=== PATIENT | male | born 1970 | race Caucasian/White ===

== ENCOUNTER 2021-07-10 18:35 | Emergency (ER) | payer BC, SELFPAY ==
--- NOTE | ~2021-07-10 | XR_ITS ---
EXAMINATION: XR scapula LT DATE: 07/10/2021 18:54 INDICATION: Nontraumatic left scapular pain TECHNIQUE: AP and lateral views of the left scapula were obtained. COMPARISON: Chest radiograph dated 02/22/2013 FINDINGS: Mild S-shaped curvature of the thoracic spine with upper cervical levocurvature and mid thoracic dext rocurvature. Normal alignment at the left shoulder. No fracture. Glenohumeral and acromioclavicular j oints are normal. Soft tissues are unremarkable. Visualized portions of the left lung are clear. IMPRESSION: 1. No acute osseous abnormality. Reviewed, dictated and finalized at location A. ORT LOCATION MANAGER
--- NOTE | 2021-07-10 18:36 | ED.UPPEXIN ---
HPI - Extremity Injury (Upper) General Chief Complaint: Extremity Injury, Upper Stated Complaint: L SHOULDER PAIN Time Seen by Provider: 07/10/21 18:37 Source: patient and RN notes reviewed History of Present Illness HPI narrative: Patient is a 50-year-old male who presents the urgent care with complaints of progressing left shoulder pain. Patient states that he has had it for several weeks and it has progressed over the last few days. Patient states is all in the posterior shoulder and denies of any chest pain. Patient states that it does radiate however to the side of his chest at times. The radiation typically occurs with twisting range of motion and while driving. Patient states that at rest he does not have much pain. Pain exacerbates with movement. Patient denies of any strenuous activity. Denies of any injury or recent fall. Patient states that he has been using Tylenol [id number] for pain relief. No other acute complaints. No acute distress noted. Patient aware of the plan of care. Some parts of this dictation were generated by voice recognition software and may contain typographical and/or grammatical inaccuracies. Related Data Home Medications Medication Instructions Recorded Confirmed amlodipine 07/10/21 Allergies Allergy/AdvReac Type Severity Reaction Status Date / Time PROCHLORPERAZINE EDISYLATE Allergy Severe SEIZURES Uncoded 05/09/21 15:05 PROCHLORPERAZINE MALEATE Allergy Severe SEIZURES Uncoded 05/09/21 15:05 Review of Systems Review of Systems: CONSTITUTIONAL: Denies fever, chills, or sweats. EYES: Denies visual changes, redness, or discharge. ENT: Denies rhinorrhea, congestion, sore throat, or otalgia. CARDIOVASCULAR: Denies chest pain, palpitations, or edema. RESPIRATORY: Denies cough or dyspnea. GASTROINTESTINAL: Denies abdominal pain, nausea, vomiting, or diarrhea. GENITOURINARY: Denies dysuria or hematuria. SKIN: Denies rash or itching. MUSCULOSKELETAL: Reports of posterior shoulder pain NEUROLOGIC: Denies headache, numbness, or weakness. All other systems reviewed are negative, except as documented in HPI. [facility] Past Medical History Medical History Cough HLD (hyperlipidemia) Low back pain with sciatica Wellness examination Social History Social History Smoking status: Never smoker Alcohol intake: never Substance use: never Substance use type: does not use Gender identity (if verbalized by the patient): Male Comments At the time of my signature, I reviewed and agree with the nursing past medical, surgical, social, and family history. There is no relevant family history pertinent to the patient complaint. Exam Narrative: GENERAL: This is a well-nourished, well-developed patient, in no apparent distress. HEAD: normocephalic, atraumatic. EYES: PERRL. Sclera clear/white. Vision is grossly intact. EARS: External ears normal NOSE: External nose normal with no obvious nasal discharge, nares without redness, no rhinorrhea. THROAT: Mucous membranes moist NECK: Neck supple CARDIOVASCULAR: Regular rate and rhythm without murmurs, gallops, or rubs. RESPIRATORY: Clear to auscultation. Breath sounds equal bilaterally. No wheezes, rales, or rhonchi. SKIN: warm, intact with no suspicious lesions or rash, good texture and turgor. NEURO: awake, alert, and oriented to person, place and time. There were no obvious focal neurologic abnormalities. EXTREMITIES: Mild pinpoint tenderness to the distal aspect of the left scapular region. Pain exacerbated with abduction and abduction of the left upper extremity. Positive strong left radial pulse with capillary refill less than 2 seconds. Range of motion within normal limits to left upper extremity. No obvious dislocation or deformity noted. BACK: Nontender without deformity or crepitance. No flank tenderness. Course Vit
[2021-07-10 18:44] VITALS: BP 171/96; PULSE 71; RESP 16; TEMP 36.4; O2SAT 100
[2021-07-10 18:46] VITALS: BP 171/96; PULSE 71; RESP 16; TEMP 36.4; O2SAT 100
--- NOTE | 2021-07-10 18:47 | ECG_ITS ---
Measurements Intervals [place] Rate: 65 P: 2 PA: 138 QRS: 22 QRSD: 81 T: 17 QT: 397 QTc: 413 Interpretive Statements SINUS RHYTHM NORMAL ECG Electronically Signed On 07-11-2021 8:04:51 BUSINESS SPECIALIST by Abdi Kaiser D.O.
== END 2021-07-10 19:20 | disposition home or self-care (01) ==
PROVIDERS: Emergency Provider Nurse Practitioner Family; PCP Family Medicine
DX: M25.512 Pain in left shoulder (principal); E78.5 Hyperlipidemia, unspecified
CPT/HCPCS: 73010; 93005; 99213; G0463

== ENCOUNTER 2021-09-03 00:08 | Day surgery (SDC) | payer BC, SELFPAY ==
[2021-08-14 15:07] VITALS: BMI 28.6
[2021-09-03 08:50] VITALS: BP 128/90; PULSE 84; RESP 18; TEMP 36.7; O2SAT 99
--- NOTE | 2021-09-03 08:55 | WPDGICN ---
Assessment and Plan Assessment and plan (1) Family history of colonic polyps: Code(s): Z83.71 - Family history of colonic polyps Status: Acute Assessment and Plan: Patient presents for neoplasia screening. His father had colon polyps. Plan is for surveillance colonoscopy at this time. Further recommendations will be given after endoscopy. GI Consult Note Consult date/time: 09/03/21 08:55 HPI: Francis Contreras is a 50 year old male Presents for screening colonoscopy. Patient's current weight appetite and bowel movements are normal. He denies abdominal pain. He has had no bleeding. Family history is significant that his father had colon polyps. Patient presents today for neoplasia screening. Review of Systems Review of Systems: All systems reviewed & are unremarkable except as noted in HPI and below PMFSH Past Medical History Medical History Cough HLD (hyperlipidemia) Low back pain with sciatica Wellness examination Social History Social History Smoking status: Never smoker Alcohol intake: never Substance use: never Substance use type: does not use Living arrangements: alone Gender identity (if verbalized by the patient): Male Spiritual care concerns: No Meds Home Medications and Allergies Home Medications Medication Instructions Recorded Confirmed Type losartan 25 mg tablet 25 mg PO DAILY #90 tablet 07/30/21 08/14/21 Rx Allergies Allergy/AdvReac Type Severity Reaction Status Date / Time gadobenic acid Allergy Other Verified 09/03/21 08:49 [From contrast - MRI] PROCHLORPERAZINE MALEATE Allergy Severe SEIZURES Uncoded 08/14/21 15:06 Vital Signs Vital Signs - 24 hr 09/03/21 08:50 Temperature 98.1 F Pulse Rate 84 Respiratory Rate 18 Blood Pressure 128/90 Pulse Oximetry 99 Exam Narrative: Physical exam reveals patient to be alert. Vital signs stable. HEENT exam is unremarkable. Patient is anicteric. Lungs are clear to auscultation and percussion. Heart is without murmur or extra sounds. Abdominal exam bowel sounds are present soft nontender with no organomegaly. Digital external rectal exam is normal.
--- NOTE | 2021-09-03 08:57 | WPDANESEPPF ---
Anes - Initial Pre Proc Eval Procedure: Operation Date: 09/03/21 10:00 Proposed Procedures p Screening Colonoscopy - Barry Caceres MD Date/Time: 09/03/21 08:57 Surgeon: Barry Caceres MD Pre Op Diagnosis: neoplasm screening Patient Data Age: 50 Gender: M Height: 1.7 m Weight: 85 kg Last Vital Signs Temp 36.7 C 09/03/21 08:50 Pulse 84 09/03/21 08:50 Resp 18 09/03/21 08:50 BP 128/90 09/03/21 08:50 Pulse Ox 99 09/03/21 08:50 Allergies Allergy/AdvReac Type Severity Reaction Status Date / Time gadobenic acid Allergy Other Verified 09/03/21 08:49 [From contrast - MRI] PROCHLORPERAZINE MALEATE Allergy Severe SEIZURES Uncoded 08/14/21 15:06 Home Medications Medication Instructions Recorded Confirmed Type losartan 25 mg tablet 25 mg PO DAILY #90 tablet 07/30/21 08/14/21 Rx Patient hx anesthesia problems: none Family hx anesthesia problems: none Results Review: All pre-operative results and documents have been reviewed as part of the pre-operative evaluation. [facility] Past Medical History Medical History Cough HLD (hyperlipidemia) Low back pain with sciatica Wellness examination Social History Social History Smoking status: Never smoker Alcohol intake: never Substance use: never Substance use type: does not use Living arrangements: alone Gender identity (if verbalized by the patient): Male Spiritual care concerns: No Anes - Eval Final PreProcedure Day of Procedure 09/03/21 08:57 Patient weight: overweight Heart: regular rate and rhythm Lungs: clear to auscultation Airway: Mallampati scale class III Neurological: alert and oriented Last oral intake: >/= 8 hours ASA classification: III Emergent: no Anesthetic plan: proceed Anesthesia type and monitoring: general GIVS and standard monitoring Results Review: All pre-operative results and documents have been reviewed as part of the pre-operative evaluation. Informed Consent: The patient's anesthetic plan and its attendant risks and benefits were discussed with the patient/family/POA. Questions were solicited and answers provided to the satisfaction of the patient/family/POA.
[2021-09-03] MEDS: LACTATED RINGERS 1,000 ML 150 ML IV CONT (09:11)
[2021-09-03] MEDS: SIMETHICONE ORAL SUSPENSION 20 MG/0.3 ML 30 ML BOTTLE 0.6 ML IRRIGATION (09:36)
[2021-09-03 09:54] VITALS: BP 83/54; PULSE 94; RESP 15; O2SAT 97
[2021-09-03 10:04] VITALS: BP 117/82; PULSE 82; RESP 20; O2SAT 99
[2021-09-03 10:14] VITALS: BP 127/92; PULSE 73; RESP 22; O2SAT 100
== END 2021-09-03 10:44 | disposition home or self-care (01) ==
PROVIDERS: PCP Family Medicine; Visit Provider Internal Medicine Gastroenterology
PROC: 0DJD8ZZ Inspection of Lower Intestinal Tract, Via Natural or Artificial Opening Endoscopic (ICD-10-PCS; CPT 45378; principal; 2021-09-03 10:00)
DX: Z12.11 Encounter for screening for malignant neoplasm of colon (principal); K51.40 Inflammatory polyps of colon without complications; K62.1 Rectal polyp; E78.5 Hyperlipidemia, unspecified
CPT/HCPCS: 45385; 88305; J2704; J7120

== ENCOUNTER 2022-01-23 14:43 | Emergency (ER) | payer BC, SELFPAY ==
--- NOTE | 2022-01-23 15:34 | ED.EXTPRO ---
HPI - Extremity Problem General Chief complaint: Extremity Problem,Nontraumatic Stated complaint: upper right arm pain Time Seen by Provider: 01/23/22 15:34 Source: patient Mode of arrival: ambulatory Limitations: no limitations History of Present Illness HPI Narrative: 51-year-old male presented for complaint of right bicep pain, onset last night. Also reports intermittent pain to right scapula. 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 He is left-handed. He states he has full range of motion if he moves slowly. Denies numbness, tingling, or weakness of the upper extremity. He took Aleve without relief. Related Data Allergies Allergy/AdvReac Type Severity Reaction Status Date / Time gadobenic acid Allergy Other Verified 01/23/22 15:06 [From contrast - MRI] PROCHLORPERAZINE MALEATE Allergy Severe SEIZURES Uncoded 01/23/22 15:06 Review of Systems Review of Systems: CONSTITUTIONAL: Denies body aches, fever, chills CARDIOVASCULAR: Denies chest pain, palpitations, or edema. RESPIRATORY: Denies cough or dyspnea. SKIN: Denies rash, itching, or wounds. MUSCULOSKELETAL: Reports myalgia. NEUROLOGIC: Denies numbness, tingling, or weakness. PSYCH: Denies depression or anxiety. All systems reviewed & are unremarkable except as noted in HPI and below PMFSH Past Medical History Medical History Cough HLD (hyperlipidemia) Low back pain with sciatica Wellness examination Social History Social History Smoking status: Never smoker Alcohol intake: never Substance use: never Substance use type: does not use Gender identity (if verbalized by the patient): Male Spiritual care concerns: No Comments At time of signature, I have reviewed and agree with nursing past medical, surgical, social and family history unless otherwise noted. Please see nursing chart for further information. There is no relevant family history pertinent to the presenting complaint Exam Narrative: GENERAL: Well-appearing HEAD: Normocephalic, atraumatic. CHEST: Speaks in full sentences. No respiratory distress. HEART: Regular rate and rhythm. Normal and equal peripheral pulses. EXTREMITIES: RUE has normal strength and sensation, normal range of motion with flexion/extension/rotation of elbow with slow movement, but endorses pain with rapid movement. Right bicep tender with palpation. No edema, erythema, or ecchymosis, No open wounds, skin tenting, or obvious deformity; pulse palpable and equal bilaterally, skin warm, dry, pink. Capillary refill less than 3 seconds. Resource Forester strong and equal bilaterally. SKIN: Warm, dry, no rash. NEURO: Alert and oriented x3. PSYCH: Normal mood and affect Course Course Emergency Course: Patient is aware of diagnosis, understands and agrees to treatment plan. Anticipatory guidance given. Patient agrees to follow-up as directed and is aware of reasons to seek care at the emergency department. Portions of this record may have been created with voice recognition software Level of Care: Express Care Visit Vital Signs Vital signs: Vital Signs Temperature 97.4 F L 01/23/22 15:44 Pulse Rate 95 01/23/22 15:44 Respiratory Rate 18 01/23/22 15:44 Blood Pressure 130/74 01/23/22 15:44 Pulse Oximetry 98 01/23/22 15:44 Temperature 97.4 F L 01/23/22 15:44 Pulse Rate 95 01/23/22 15:44 Respiratory Rate 18 01/23/22 15:44 Blood Pressure 130/74 01/23/22 15:44 Pulse Oximetry 98 01/23/22 15:44 Reviewed MDM - Extremity (Nontraumatic) MDM Narrative Medical decision making narrative: PE c/w bicep strain. Advised supportive treatments. v/u. Differential Diagnosis Differential diagnosis: Likely other (tendonitis, bicep tear, muscle strain, contusion) Discharge Plan Discharge Clinical Impression: Biceps muscle strain Qualifiers:
[2022-01-23 15:44] VITALS: BP 130/74; PULSE 95; RESP 18; TEMP 36.3; O2SAT 98
== END 2022-01-23 15:51 | disposition home or self-care (01) ==
PROVIDERS: Emergency Provider Nurse Practitioner Family; PCP Family Medicine
DX: S46.211A Strain of muscle, fascia and tendon of other parts of biceps, right arm, initial encounter (principal); X50.0XXA Overexertion from strenuous movement or load, initial encounter; Y99.0 Civilian activity done for income or pay; E78.5 Hyperlipidemia, unspecified
CPT/HCPCS: 99213; G0463

== ENCOUNTER 2022-02-04 11:34 | Emergency (ER) | payer BC, SELFPAY ==
--- NOTE | ~2022-02-04 | XR_ITS ---
EXAMINATION: XR chest 2V DATE: 02/04/2022 12:36 INDICATION: Central chest pain. TECHNIQUE: Frontal and lateral views of the chest were obtained. COMPARISON: Chest 2 views 02/22/2013 FINDINGS: The chest demonstrates clear lungs without pneumonia, pleural effusion, or pneumothorax. Th e heart size is normal. Surgical clips in the right upper quadrant are likely from cholecystectomy. IMPRESSION: 1. No acute cardiopulmonary disease. Reviewed, dictated and finalized at location B.
[2022-02-04 11:44] VITALS: BP 152/93; PULSE 93; RESP 16; TEMP 36.7; O2SAT 100
--- NOTE | 2022-02-04 11:55 | ECG_ITS ---
Measurements Intervals [place] Rate: 90 P: 19 [place]: 135 QRS: 32 QRSD: 75 T: 62 QT: 341 QTc: 418 Interpretive Statements SINUS RHYTHM NONSPECIFIC T-WAVE ABNORMALITY Electronically Signed On 02-04-2022 12:15:01 CDT by Brady Alatorre M.D.
--- NOTE | 2022-02-04 12:25 | ED.CHESTPAIN ---
HPI - Chest Pain General Chief Complaint: Chest Pain Stated Complaint: chest pain Time Seen by Provider: 02/04/22 12:03 History of Present Illness HPI narrative: Pt describes intermittent chest pain brief in nature lasting a few seconds and resolving. Today says has pain lasting two hours, pain about a 2/10 now. Pt says is worse when he bends over or moves in certain ways. No change with deep breath. Related Data Allergies Allergy/AdvReac Type Severity Reaction Status Date / Time gadobenic acid Allergy Other Verified 02/04/22 12:04 [From contrast - MRI] PROCHLORPERAZINE MALEATE Allergy Severe SEIZURES Uncoded 02/04/22 12:04 Review of Systems Review of Systems: All systems reviewed & are unremarkable except as noted in HPI and below PMFSH Past Medical History Medical History Cough HLD (hyperlipidemia) Low back pain with sciatica Wellness examination Social History Social History Smoking status: Never smoker Alcohol intake: never Substance use: never Substance use type: does not use Gender identity (if verbalized by the patient): Male Spiritual care concerns: No Exam Const: General: healthy appearing Nutritional Appearance: well nourished Orientation/consciousness: patient oriented x3 Limitations: no limitations HENMT: Head: normal to inspection Eyes: Conjunctivae: conjunctivae normal EOM: EOMs intact bilaterally Neck: Neck: normal visual inspection Chest: Chest palpation & inspection: normal inspection of the chest Other: no tenderness to palpation Resp: Effort & Inspection: normal respiratory effort Auscultation: clear to auscultation bilaterally Cardio: Rate: regular rate Rhythm: regular rhythm GI: Auscultation: normal bowel sounds Skin: General skin exam: normal color Rashes: no rashes Neuro: General: patient oriented x3, moves all extremities, no meningeal signs and no focal motor deficits Cranial nerves: Yes Nystagmus not present Speech: normal speech Extrem: General: normal to inspection Psych: Mental Status: mental status grossly normal Affect: normal affect Attitude: cooperative Course Vital Signs Vital signs: Vital Signs Temperature 98.1 F 02/04/22 11:44 Pulse Rate 93 02/04/22 11:44 Respiratory Rate 16 02/04/22 11:44 Blood Pressure 152/93 H 02/04/22 11:44 Pulse Oximetry 100 02/04/22 11:44 Oxygen Delivery Room Air 02/04/22 11:44 Temperature 98.1 F 02/04/22 11:44 Pulse Rate 90 02/04/22 13:11 Respiratory Rate 16 02/04/22 13:11 Blood Pressure 134/101 H 02/04/22 13:11 Pulse Oximetry 99 02/04/22 13:11 Oxygen Delivery Room Air 02/04/22 11:44 MDM - Chest Pain Lab Data Result diagrams: 02/04/22 12:22 02/04/22 12:22 Labs: Lab Results 02/04/22 02/04/22 02/04/22 Range/Units 12:22 12:22 12:22 WBC 8.0 (4.5-10.0) K/mm3 RBC 5.01 (4.6-6.20) M/mm3 Hgb 14.9 (14.0-18.0) g/dL Hct 45.8 (42.0-52.0) % MCV 91.4 (80-100) fl MCH 29.7 (26-34) pg MCHC 32.5 (32-36) g/dl RDW 13.1 (11.5-14.5) % Plt Count 234 (150-375) k/mm3 MPV 9.2 (7.4-10.4) fl Immature Gran % (Auto) 0.4 (0-0.5) % Neut % (Auto) 70.4 (45.5-73.1) % Lymph % (Auto) 20.8 (18.3-44.2) % [place] % (Auto) 5.6 (2.6-8.5) % Eos % (Auto) 2.4 (0-4.4) % Baso % (Auto) 0.4 (0.2-1.2) % Lymph # (Auto) 1.66 (0.9-3.2) K/mm3 [place] # (Auto) 0.5 (0.1-0.6) K/mm3 Eos # (Auto) 0.2 (0-0.3) K/mm3 Baso # (Auto) 0.0 (0.0-0.1) K/mm3 Abs Immat Gran (auto) 0.03 (0.00-0.031) K/mm3 Absolute Neuts (auto) 5.6 (1.3-6.7) K/mm3 Absolute Nucleated RBC 0.0 (0.0-0.012) K/mm3 Nucleated RBC % 0.0 (0.0-0.2) % PT 12.6 (11.1-14.7) Seconds INR 1.0 APTT 30.8 (22.3-36.8) SECONDS Sodium 140 (137-145) mmol/L Potassium 4.6 (
[2022-02-04 12:33] LABS: Basophils Percent Auto 0.4 % (0.2-1.2); Eosinophils Absolute Auto 0.2 K/mm3 (0-0.3); Eosinophils Percent Auto 2.4 % (0-4.4); Hematocrit 45.8 % (42.0-52.0); Hemoglobin 14.9 g/dL (14.0-18.0); Immature Granulocyte Absolute 0.03 K/mm3 (0.00-0.031); Immature Granulocyte Percent A 0.4 % (0-0.5); Lymphocytes Absolute Auto 1.66 K/mm3 (0.9-3.2); Lymphocytes Percent Auto 20.8 % (18.3-44.2); Mean Corpuscular HGB Conc 32.5 g/dl (32-36); Mean Corpuscular Hemoglobin 29.7 pg (26-34); Mean Corpuscular Volume 91.4 fl (80-100); Mean Platelet Volume 9.2 fl (7.4-10.4); Monocytes Absolute Auto 0.5 K/mm3 (0.1-0.6); Monocytes Percent Auto 5.6 % (2.6-8.5); Neutrophils Absolute Auto 5.6 K/mm3 (1.3-6.7); Neutrophils Percent Auto 70.4 % (45.5-73.1); Platelet Count Result 234 k/mm3 (150-375); Red Blood Count 5.01 M/mm3 (4.6-6.20); Red Cell Distribution Width 13.1 % (11.5-14.5)
[2022-02-04 12:44] LABS: Alanine Aminotransferase 33 U/L (6-50); Albumin Level 4.6 g/dL (3.5-5.1); Alkaline Phosphatase 54 U/L (38-126); Anion Gap 5 mmol/L (8-16); Aspartate Amino Transferase 26 U/L (17-59); Bilirubin,Total 0.5 mg/dL (0.2-1.3); Blood Urea Nitrogen 17 mg/dL (9-20); Calcium 8.9 mg/dL (8.4-10.2); Carbon Dioxide 31 mmol/L (22-30); Chloride 104 mmol/L (98-107); Estimated CRCL calculation 80 ml/min; Estimated Glomerular Filt Rate > 60; Glucose 107 mg/dL (65-110); Lipase 284 U/L (23-300); Partial Thromboplastin Time 30.8 SECONDS (22.3-36.8); Potassium 4.6 mmol/L (3.4-5.0); Prothrombin Time 12.6 Seconds (11.1-14.7); Sodium 140 mmol/L (137-145)
[2022-02-04 13:00] LABS: Troponin I < 0.012 ng/mL (0.000-0.034)
[2022-02-04 13:11] VITALS: BP 134/101; PULSE 90; RESP 16; O2SAT 99
== END 2022-02-04 13:11 | disposition home or self-care (01) ==
PROVIDERS: Emergency Medicine; Emergency Provider Emergency Medicine; PCP Family Medicine
DX: R07.89 Other chest pain (principal); E78.5 Hyperlipidemia, unspecified; R94.31 Abnormal electrocardiogram [ECG] [EKG]
CPT/HCPCS: 36415; 71046; 80053; 83690; 84484; 85025; 85610; 85730; 93005; 99284

== ENCOUNTER 2023-07-15 08:44 | Outpatient (CLI) | payer BC, SELFPAY ==
--- NOTE | ~2023-07-15 | US_ITS ---
US soft tissue UE RT DATE: 07/15/2023 09:05 INDICATION: Localized lump, swelling, right third digit just below nailbed TECHNIQUE: Real-time and color flow imaging targeted at the area of clinical complaint COMPARISON: None FINDINGS: At the dorsal aspect of the distal third digit near the base of the nail is a mildly irregu lar sonolucent area measuring approximately 2.4 x 1.7 x 3.5 mm dimension, with surrounding prominent color flow signal. Medially and laterally IMPRESSION: Nonspecific 1.7 x 2.4 x 3.5 mm cystic mass at area of soft tissue lump at dorsal distal t hird digit near base of nail bed Reviewed, dictated and finalized at Location A. Reviewed, dictated and finalized at location A. WASHER IMPRESSION: Nonspecific 1.7 x 2.4 x 3.5 mm cystic mass at area of soft tissue l ump at dorsal distal third digit near base of nail bed
== END 2023-07-15 08:45 ==
LOC: MICIMG 08:45
PROVIDERS: PCP Physician Assistant; Visit Provider Physician Assistant
DX: R22.31 Localized swelling, mass and lump, right upper limb (principal)
CPT/HCPCS: 76882

== ENCOUNTER 2023-08-10 09:33 | Outpatient (CLI) | payer BC, SELFPAY ==
--- NOTE | 2023-08-10 09:30 | ECG_ITS ---
Measurements Intervals [place] Rate: 72 P: 5 [place]: 132 QRS: 35 QRSD: 81 T: 88 QT: 339 QTc: 371 Interpretive Statements SINUS RHYTHM NONSPECIFIC T-WAVE ABNORMALITY BORDERLINE ECG COMPARED TO ECG 02/04/2022 11:42:35 NO SIGNIFICANT CHANGES Electronically Signed On 08-10-2023 17:14:15 SMALL OFFSET PRINTER by Jung Atwood M.D.
== END 2023-08-10 09:34 | disposition home or self-care (01) ==
LOC: ANHSURGERY 09:37
PROVIDERS: PCP Family Medicine; Visit Provider Plastic Surgery
DX: Z01.818 Encounter for other preprocedural examination (principal); E78.5 Hyperlipidemia, unspecified; R93.1 Abnormal findings on diagnostic imaging of heart and coronary circulation
CPT/HCPCS: 93005

== ENCOUNTER 2023-08-12 00:25 | Day surgery (SDC) | payer BC, SELFPAY ==
[2023-08-07 13:29] VITALS: BMI 32.0
--- NOTE | 2023-08-07 13:36 | PC.NURSE ---
Report to the Outpatient Waiting Room, entrance under the green pavilion located off [facility], at time 0600 on date 08/12/23 Planned Procedure Time: _0730 . Time changes happen often and if your time is changed the preop area will call you the afternoon before. - You and your visitor will be asked to self-screen and do not enter if you have any COVID symptoms. - A mask is optional within the hospital at this time. Patients may have clear liquids (water, carbonated beverages, clear teas, apple juice) until 8 hours prior to surgery with a maximum of 20 ounces. - No food from midnight until time of surgery - Infants may have breast milk until 4 hours before surgery, formula 6 hours prior to surgery. - Children will be allowed to drink immediately following surgery. If applicable, please bring a bottle or sippy cup to assist with drinking. Juice, water, soda, and popsicles are readily available. For infants on formula, please bring formula the day of surgery. Pacifiers are allowed. Take the following medications with a SIP of water the morning of surgery: NONE DO NOT STOP ANY OF YOUR OTHER PRESCRIPTION MEDICATIONS PRIOR TO SURGERY ?EXCEPT THE FOLLOWING Medications to discontinue per physician NONE Date to take last dose Please no make-up, nail occitan, hairspray, perfume, deodorant, or body powder the day of surgery. No jewelry (including any body piercings) or valuables the day of surgery, leave them at home. Please take a shower or bath the night before, or the morning of, surgery with an antibacterial soap. Wear comfortable, loose fitting clothing. Children are encouraged to wear pajamas. - Jewelry must be removed prior to entering the operating room. Rings and piercings that are not removed may be cut off. - The hospital will not accept responsibility for valuables. - Please leave all valuables, including medications, at home the day of surgery. If you are going home after surgery, a licensed star route mail driver must drive you home. - NO public transportation without another adult if you receive anesthesia. - We recommend that an adult stay with you for 24 hours following discharge. - We also recommend that you do not drive, make important decision, drink alcoholic beverages, or take any drugs that were not prescribed by your health care provider for at least 24 hours after your discharge time. For Pediatric surgeries, we recommend two adults accompany the child home. Follow any additional instructions given to you from your surgeon. If you or anyone in your household have experienced Covid symptoms in the past week, please notify your surgeon or the nurse liaison at the phone number below for possible testing. Telephone instructions given to __PATIENT_and asked if any additional questions and then verbalized understanding. Patient advised to call surgeon office or pre surgery nurse liaison [phone] if any additional questions.
[2023-08-12] MEDS: LACTATED RINGERS 1,000 ML 30 ML IV CONT (06:30)
--- NOTE | 2023-08-12 06:55 | WPDHPUPDATE1 ---
History and Physical Update Update Date/Time: 08/12/23 06:55 Patient seen and examined in pre-operative holding area. 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 Patient recalls previous discussion of benefits and alternatives to procedure. Continues to desire to proceed with right middle finger mucous cyst excision possible adjacent tissue transfer. Reviewed procedure, post-op expectations and risks including but not limited to bleeding, infection, injury to tendon/nerve/vessel, decreased hand function, stiffness, RSD, recurrence, no change or worsening of symptoms. I discussed the possible use of assistants and their participation in the case. Patient stated understanding and signed the consent form wishing to proceed.
--- NOTE | 2023-08-12 06:56 | P.OP_ITS ---
Procedure Note - Detailed Date of Procedure 08/12/23 Pre-op Diagnosis Mucous Cyst Right Middle FInger Post-op Diagnosis Same Procedure Performed right middle finger mucous cyst excision Surgeon Barbara Olivera MD Anesthesia MAC Description of Procedure INFORMED CONSENT: The patient was seen and examined and marked in the pre-op area.? The patient signed the consent form. PROCEDURE IN DETAIL:The patient taken back to OR on the stretcher in supine position. Time out performed with anesthesia, surgeon and staff agreeing on patient's name site and surgery to be performed SCDs were placed on the lower extremities and inflated. A tourniquet was placed on {right} upper extremity and antibiotics given IV After anesthesia administered sedation I injected {4}cc 1%lido and 0.5% marcaine plain at the operative site The?{right upper extremity}?was prepped and draped in sterile fashion the??{right upper extremity} was? exsanguinated with Esmarch bandage and tourniquet inflated to 250mmHg I proceeded with making a longitudinal incision over the R MF cyst through skin and dermis. Dissection around cyst back to dipjoing and excision of cyst with bipolar cautery. I identified a small osteophyte coming off middle phalanx at dipj. I made incision over osteophyte through periosteum and reflected perios teum and rongeured osteophyte til flat. I irrigated with normal saline. I repaired the capsular defect with 5-0 vicryl and skin closed with 4-0 chromic. A dressing of xeroform, 4x4, tube gauze was applied after the tourniquet was let down noting the hand was warm and well perfused. The patient was then awaken from anesthesia and transferred to the recovery room in stable condition.? Complications - none EBL- 0cc Disposition - home in stable conditions [facility] Billing Surgery - Charge Forward: Surgery Billing ([id number] and [id number])
--- NOTE | 2023-08-12 06:57 | P.PNAN_ITS ---
Anes - Initial Pre Proc Eval Procedure: Operation Date: 08/12/23 07:30 Proposed Procedures p Right Middle Finger Digital Mucous Cyst Excision, Possible Adjacent Tissue Transfer - Barbara Olivera MD Date/Time: 08/12/23 06:57 Surgeon: Barbara Olivera MD Pre Op Diagnosis: Mucous Cyst Right Middle FInger Patient Data Age: 52 Gender: M Height: 1.68 m Weight: 90 kg Allergies Allergy/AdvReac Type Severity Reaction Status Date / Time gadobenic acid Allergy Other Verified 08/07/23 13:27 [From contrast - MRI] PROCHLORPERAZINE MALEATE Allergy Severe SEIZURES Uncoded 08/07/23 13:27 Home Medications Medication Instructions Recorded Confirmed Type triamcinolone acetonide 0.1 % 1 applic topical BID PRN rash #15 10/31/22 08/07/23 Rx topical ointment grams albuterol sulfate 90 mcg/actuation 1 puff inhalation Q4-6H PRN 05/04/23 08/07/23 Rx aerosol inhaler shortness of breath or wheezing #8.5 grams losartan 50 mg tablet 75 mg PO HS 08/07/23 08/07/23 History omeprazole 10 mg capsule,delayed 10 mg PO DAILY 08/07/23 08/07/23 History release Patient hx anesthesia problems: none Family hx anesthesia problems: none Results Review: All pre-operative results and documents have been reviewed as part of the pre- operative evaluation. [facility]LY [facility] Past Medical History Medical History Contact dermatitis Cough HLD (hyperlipidemia) Low back pain with sciatica Wellness examination Surgical History Surgical History H/O inguinal hernia repair History of cholecystectomy Social History Social History Smoking status: Never smoker Alcohol intake: former Substance use: never Substance use type: does not use Lack of Transportation: No Lack of Food: Never True Current Housing: I Have Housing Concerned About Future Housing: No Difficulty Paying Gas/Electric Bills: No Difficulty Paying for Meds: No Currently Unemployed: No Education: Bachelor's Degree Difficulty w/ Childcare or Family Care: No Living arrangements: alone Occupation/Education: occupation Gender identity (if verbalized by the patient): Male Spiritual care concerns: No Anes - Eval Final PreProcedure Day of Procedure 08/12/23 06:57 Patient weight: obese Heart: regular rate and rhythm Lungs: clear to auscultation Airway: Mallampati scale class III and special considerations poor opening Neurological: alert and oriented Last oral intake: >/= 8 hours ASA classification: III Emergent: no Anesthetic plan: proceed Anesthesia type and monitoring: general LMA and standard monitoring Results Review: All pre-operative results and documents have been reviewed as part of the pre- operative evaluation. Informed Consent: The patient's anesthetic plan and its attendant risks and benefits were discussed with the patient/family/POA. Questions were solicited and answers provided to the satisfaction of the patient/family/POA.
[2023-08-12] MEDS: ceFAZolin 2 GM/D5W 50 ML 2 GM/50 ML BAG IVPB (07:21)
[2023-08-12 07:30] VITALS: BP 119/74; PULSE 84; RESP 16; TEMP 36.7; O2SAT 97
[2023-08-12 07:51] VITALS: BP 92/56; PULSE 97; RESP 16; O2SAT 100
[2023-08-12] MEDS: BUPivacaine HCL 0.5% 10 ML AMP 5 ML INFILTRATE (07:54)
[2023-08-12 08:10] VITALS: BP 108/71; PULSE 92; RESP 16; O2SAT 98
[2023-08-12 08:40] VITALS: BP 120/66; PULSE 73; RESP 16
== END 2023-08-12 09:01 | disposition home or self-care (01) ==
PROVIDERS: PCP Family Medicine; Visit Provider Plastic Surgery
PROC: (CPT 26210; principal; 2023-08-12 07:30)
DX: L90.5 Scar conditions and fibrosis of skin (principal); M25.741 Osteophyte, right hand; E78.5 Hyperlipidemia, unspecified; E66.9 Obesity, unspecified; Z68.35 Body mass index [BMI] 35.0-35.9, adult; Z79.51 Long term (current) use of inhaled steroids; Z90.49 Acquired absence of other specified parts of digestive tract
CPT/HCPCS: 26210; 88305; A9270; J0690; J1100; J2250; J2405; J2704; J3010; J7120

== ENCOUNTER 2023-10-20 12:55 | Emergency (ER) | payer BC, SELFPAY ==
[2023-10-20 13:07] VITALS: BP 139/83; PULSE 93; RESP 16; TEMP 36.7; O2SAT 97
--- NOTE | 2023-10-20 13:55 | ED.URI ---
HPI - URI/Sore Throat General Chief Complaint: Upper Respiratory Infection Stated Complaint: Sore throat/chest congestion/earache Time Seen by Provider: 10/20/23 13:55 Source: patient, RN notes reviewed and old records reviewed Mode of arrival: ambulatory Limitations: no limitations History of Present Illness HPI Narrative: 53 year old male who present to [facility] care with complaints of continued cough and congestion, sinus drainage and some sore throat. Patient reports that he was treated about 12 days ago with a Medrol dose back and he felt a little better after taking the first 2 days of the steroid but then his symptoms returned and have increased. Patient reports long history of sinus problems and sinus infections states that he has been using his Albuterol inhaler and taking Flonase and Mucinex. MD elicited complaint: cough, rhinorrhea, nasal congestion and sinus pain Pertinent past history: sinusitis and seasonal allergies Onset (ago): week(s) (2) Pain scale (0-10): 2 Description of mucous: yellow Able to tolerate fluids by mouth: Yes Treatments prior to arrival: other (Medrol dose pack, Mucinex, Flonase and Albuterol inhaler) Related Data Home Medications Medication Instructions Recorded Confirmed losartan 50 mg tablet 75 mg PO HS 08/07/23 10/20/23 omeprazole 10 mg capsule,delayed 10 mg PO DAILY 08/07/23 10/20/23 release ciprofloxacin HCl 0.3 % eye drops drp 10/20/23 10/20/23 Allergies Allergy/AdvReac Type Severity Reaction Status Date / Time prochlorperazine Allergy Severe Seizure Verified 10/20/23 13:28 gadobenic acid Allergy Other Verified 10/20/23 13:28 [From contrast - MRI] Review of Systems Review of Systems: CONSTITUTIONAL: Denies malaise, chills, sweats, or fever. EYES: Denies visual changes, redness, or discharge. ENT: Reports rhinorrhea, congestion, sinus pain, no otalgia and positive for sore throat. CARDIOVASCULAR: Denies chest pain, palpitations, or edema. RESPIRATORY: Reports cough.? Denies dyspnea. GASTROINTESTINAL: Denies abdominal pain, nausea, vomiting, diarrhea SKIN: Denies rash or itching. MUSCULOSKELETAL: Denies myalgia. NEUROLOGIC:REports some headache. All systems reviewed & are unremarkable except as noted in HPI and below PMFSH Past Medical History Medical History Contact dermatitis Cough HLD (hyperlipidemia) Low back pain with sciatica Wellness examination Surgical History Surgical History H/O inguinal hernia repair History of cholecystectomy Social History Social History Smoking status: Never smoker Alcohol intake: former Substance use: never Substance use type: does not use Lack of Transportation: No Lack of Food: Never True Current Housing: I Have Housing Concerned About Future Housing: No Difficulty Paying Gas/Electric Bills: No Difficulty Paying for Meds: No Currently Unemployed: No Education: Bachelor's Degree Difficulty w/ Childcare or Family Care: No Living arrangements: alone Occupation/Education: occupation Gender identity (if verbalized by the patient): Male Spiritual care concerns: No Comments At time of signature, agree with nursing past medical, surgical, social and family history. There is no relevant family history pertinent to the presenting complaint Exam Narrative: GENERAL: Well-appearing, well-nourished, and in no acute distress. HEAD: Normocephalic EYES: PERRLA, conjunctivae clear ENT: Nares clear, turbinates edematous and erythematous, yellow discharge.sinus pressure and headaches. Mucous membranes moist. TM pearly abernathy with dull light reflex bilaterally; no tragal tenderness. Oropharynx erythematous without lesions. Tonsils not enlarged and without exudate, no drooling, no hoarseness, no trismus, uvula midline.pos
== END 2023-10-20 14:11 | disposition home or self-care (01) ==
PROVIDERS: Emergency Provider Registered Nurse; PCP Family Medicine
DX: J01.90 Acute sinusitis, unspecified (principal); E78.5 Hyperlipidemia, unspecified
CPT/HCPCS: 99213; G0463

== ENCOUNTER 2023-11-16 14:29 | Emergency (ER) | payer BC, SELFPAY ==
[2023-11-16 14:33] VITALS: BP 139/95; PULSE 90; RESP 16; TEMP 37.1; O2SAT 98
--- NOTE | 2023-11-16 14:35 | ED.GENADULT ---
HPI - General Adult General Chief complaint: Upper Respiratory Infection Stated complaint: Sore Throat/Congestion Source: patient, RN notes reviewed and old records reviewed Mode of arrival: ambulatory Limitations: no limitations History of Present Illness HPI narrative: 53-year-old male patient presents to [facility] Care with complaint of sinus congestion, sore throat, cough that started 8 days ago. Patient taking [id number] medications with no relief. Patient states now is having productive yellow cough with left-sided sinus pressure/pain and slight shortness of breath. Patient states he is also using albuterol inhaler more often. Related Data Home Medications Medication Instructions Recorded Confirmed losartan 50 mg tablet 75 mg PO HS 08/07/23 11/16/23 omeprazole 10 mg capsule,delayed 10 mg PO DAILY 08/07/23 11/16/23 release Allergies Allergy/AdvReac Type Severity Reaction Status Date / Time prochlorperazine Allergy Severe Seizure Verified 10/20/23 13:28 gadobenic acid Allergy Other Verified 11/16/23 14:34 [From contrast - MRI] Review of Systems Constitutional: Constitutional: Reports no additional constitutional complaints, Denies body ache(s), Denies chills, Denies fatigue, Denies fever(s) and Denies headache(s) Eyes: Eyes: Reports no additional eye complaints and Denies blurry vision ENT: Reports system reviewed and no additional complaints, except as documented, Denies vertigo, Denies dizziness, Denies ear discharge, Denies otalgia, Denies facial pain, Denies headache(s), Reports nasal congestion, Reports nasal discharge, Reports sinus pain, Reports sinus pressure and Reports sore throat Cardiovascular: Cardiovascular: Reports no additional cardiovascular complaints, Denies chest pain, Denies chest pain at rest, Denies rapid heart rate and Denies dyspnea Respiratory: Respiratory: Reports no additional respiratory complaints, Reports chest congestion, Reports cough, Denies pain on inspiration, Denies pain with cough and Reports dyspnea Gastrointestinal: Gastrointestinal: Denies abdominal pain, Denies diarrhea, Denies nausea and Denies vomiting Integumentary/Breasts: Skin/Breast: Denies rash Neurologic: Reports system reviewed and no additional complaints, except as documented, Denies vertigo, Denies dizziness and Denies headache(s) Endocrine: Endocrine: Denies fatigue PMFSH Past Medical History Medical History Contact dermatitis Cough HLD (hyperlipidemia) Low back pain with sciatica Wellness examination Surgical History Surgical History H/O inguinal hernia repair History of cholecystectomy Social History Social History Smoking status: Never smoker Alcohol intake: former Substance use: never Substance use type: does not use Lack of Transportation: No Lack of Food: Never True Current Housing: I Have Housing Concerned About Future Housing: No Difficulty Paying Gas/Electric Bills: No Difficulty Paying for Meds: No Currently Unemployed: No Education: Bachelor's Degree Difficulty w/ Childcare or Family Care: No Living arrangements: alone Occupation/Education: occupation Gender identity (if verbalized by the patient): Male Spiritual care concerns: No Comments At the time of my signature, I reviewed and agree with the nursing past medical, surgical, social, and family history. There is no relevant family history pertinent to the patient complaint. Exam Const: General: cooperative, healthy appearing, no acute distress and well nourished Nutritional Appearance: well nourished Orientation/consciousness: patient oriented x3 Limitations: no limitations HENMT: Head: normal to inspection and normocephalic Ears: external ears normal, TM's normal bilaterally, EAC's normal and mastoids normal
== END 2023-11-16 14:48 | disposition home or self-care (01) ==
PROVIDERS: Emergency Provider Registered Nurse; PCP Family Medicine
DX: J22 Unspecified acute lower respiratory infection (principal); E78.5 Hyperlipidemia, unspecified
CPT/HCPCS: 99213; G0463

== ENCOUNTER 2024-04-24 11:46 | Emergency (ER) | payer BC, SELFPAY ==
[2024-04-24 11:55] VITALS: BP 155/88; PULSE 88; RESP 16; TEMP 36.6; O2SAT 100
--- NOTE | 2024-04-24 12:21 | ED.URI ---
HPI - URI/Sore Throat General Chief Complaint: Upper Respiratory Infection Stated Complaint: Sore Throat/Cough/Congestion Time Seen by Provider: 04/24/24 12:23 Source: patient Mode of arrival: ambulatory Limitations: no limitations History of Present Illness HPI Narrative: 53-year-old male presented for complaint of right ear pain for 2 days, along with nasal congestion and drainage x 2 weeks. Take antihistamine and nasal spray routinely. He denies shortness of breath, wheezing, nausea, vomiting, fevers or chills. Denies tinnitus or ear drainage. Related Data Home Medications Medication Instructions Recorded Confirmed omeprazole 10 mg capsule,delayed 20 mg PO DAILY 12/18/23 04/24/24 release Allergies Allergy/AdvReac Type Severity Reaction Status Date / Time prochlorperazine Allergy Severe Seizure Verified 04/24/24 12:18 gadobenic acid Allergy Other Verified 04/24/24 12:18 [From contrast - MRI] Review of Systems Review of Systems: CONSTITUTIONAL: Denies malaise, chills, or fever. EYES: Denies visual changes, redness, or discharge. ENT: Reports ear pain, rhinorrhea, congestion, sinus pain CARDIOVASCULAR: Denies chest pain, palpitations, or edema. RESPIRATORY: Denies dyspnea. GASTROINTESTINAL: Denies abdominal pain, nausea, vomiting, diarrhea SKIN: Denies rash or itching. MUSCULOSKELETAL: Denies myalgia. All systems reviewed & are unremarkable except as noted in HPI and below PMFSH Past Medical History Medical History Contact dermatitis Cough HLD (hyperlipidemia) Low back pain with sciatica Wellness examination Surgical History Surgical History H/O inguinal hernia repair History of cholecystectomy Social History Social History Smoking status: Never smoker Alcohol intake: former Substance use: never Substance use type: does not use Lack of Transportation: No Lack of Food: Never True Current Housing: I Have Housing Concerned About Future Housing: No Difficulty Paying Gas/Electric Bills: No Difficulty Paying for Meds: No Currently Unemployed: No Education: Bachelor's Degree Difficulty w/ Childcare or Family Care: No Living arrangements: alone Occupation/Education: occupation Gender identity (if verbalized by the patient): Male Spiritual care concerns: No Comments At time of signature, agree with nursing past medical, surgical, social and family history. There is no relevant family history pertinent to the presenting complaint Exam Narrative: GENERAL: Well-appearing EYES: conjunctivae clear ENT: Nares clear. Mucous membranes moist. Left TM pearly abernathy with dull light reflex; right TM erythematous, bulging and intact; canal not erythematous, no drainage no tragal tenderness. Oropharynx not erythematous without lesions. Tonsils not enlarged and without exudate, no drooling, no hoarseness, no trismus, uvula midline. NECK: Supple. No lymphadenopathy CHEST: Clear to auscultation, breath sounds equal. No wheezing, rhonchi, rales, or stridor. No respiratory distress, speaks in full sentences. HEART: Regular rate and rhythm. No murmur heard. SKIN: Warm, dry, no rash. NEURO: Alert and oriented x3. PSYCH: Normal mood and affect Course Course Emergency Course: Patient is aware of diagnosis, understands and agrees to treatment plan. Anticipatory guidance given. Patient agrees to follow-up as directed and is aware of reasons to seek care at the emergency department. Portions of this record may have been created with voice recognition software Level of Care: Express Care Visit Vital Signs Vital signs: Vital Signs Temperature 98 F 04/24/24 11:55 Pulse Rate 88 04/24/24 11:55 Respiratory Rate 16 04/24/24 11:55 Blood Pressure 155/88 H 04/24/24 11:55 Pulse Oximetry 100 04/24/24
[2024-04-24 12:27] LABS: EDSTREPNEGPOS1 Negative
== END 2024-04-24 12:40 | disposition home or self-care (01) ==
PROVIDERS: Emergency Provider Nurse Practitioner Family; PCP Family Medicine
DX: J32.9 Chronic sinusitis, unspecified (principal); H66.91 Otitis media, unspecified, right ear; Z20.822 Contact with and (suspected) exposure to COVID-19; E78.5 Hyperlipidemia, unspecified
CPT/HCPCS: 87426; 87880; 99213; G0463

== ENCOUNTER 2025-01-13 00:29 | Day surgery (SDC) | payer BC, SELFPAY ==
[2025-01-05 15:44] VITALS: BMI 33.4
--- OUTSIDE RECORDS SUMMARY | 2025-01-13 00:31 | XMS_ITS | Clinical Summary ---
Author Organization [facility] [employer] Address [address] [place] [address] Care Team Providers Care Warehouse Driver Name Role Phone Rahat Reagan MD Primary Care Provider [phone] Source Comments [facility],non-owned Affiliates and Associated Physician Practices is amultiple site organization consisting of ambulatory clinics and hospital sitesin [place], [place], [place] and [place]. This disclosure is being madepursuant to the Care Everywhere program and may not contain all information available regarding this patient. Last updated 18.[facility] Allergies Active Allergy Reactions Criticality Noted Date Comments Prochlorperazine Seizures High 03/29/2017 Medications * Be aware that medications may not be up to date on this document. Alwaysverify current medications with the patient. fluticasone propionate (FLONASE) 50 MCG/ACT nasal spray [place] 2 sprays into each nostril once daily 1 bottles 8 Active albuterol HFA (VENTOLIN HFA) 108 (90 BASE) MCG/ACT inhalerIndicatio ns:Asthma, unspecified asthma severity, unspecified whether complicated, unspecified whether persistent (HCC),Medication refill Inhale 2 puffs by mouth every 4 hours as needed for Wheezing or Cough 1 Inhaler 2 8 Active Active Problems No known active problems Family History Medical History Relation Name Comments Hypertension Father Diabetes - Type 2 Mother Hypertension Mother Asthma Neg Hx Autoimmune Disease Neg Hx Bipolar Disorder Neg Hx Cancer - Breast Neg Hx Cancer - Colon Neg Hx Cancer - Other Neg Hx Cancer - Ovarian Neg Hx Cancer - Pancreatic Neg Hx Cancer - Prostate Neg Hx Depression Neg Hx Eczema Neg Hx Migraine Neg Hx Osteoporosis Neg Hx Seizures Neg Hx Sudd. <30 Neg Hx Thyroid Disease Neg Hx Ulcerative Colitis Neg Hx Relation Name Status Comments Father Alive Mother Alive Social History Tobacco Use Types Packs/Day Years Used Date Smoking Tobacco: Never Smokeless Tobacco: Never Tobacco Cessation:Counseling Given: No Alcohol Use Standard Drinks/Week Comments No 0 (1 standard drink = 0.6 oz pur e alcohol) Sex and Gender Information Value Date Recorded Sex Assigned at Not on file Legal Sex Male 4:47 PM CDT Gender Identity Not on file Sexual Orientation Not on file Last Filed Vital Signs Vital Sign Reading Time Taken Comments Blood Pressure 120/80 06/15/2018 6:16 PM CDT Pulse 80 06/15/2018 6:16 PM CDT Temperature 36.8 C (98.2 F) 06/15/2018 6:16 PM CDT Respiratory Rate 20 06/15/2018 6:16 PM CDT Oxygen Saturation 97% 01/14/2018 12:09 PM CDT Inhaled Oxygen Concentration - - Weight 90.7 kg (200 lb) 06/15/2018 6:16 PM CDT Height 167.6 cm (5' 6 ) 01/14/2018 12:09 PM CDT Body Mass Index 32.28 01/14/2018 12:09 PM CDT Plan of Treatment Health Maintenance Due Date Last Done Comments COLOGUARD (AGES 45-75) - COL ON CA SCREENING 1970 COLON MONITORING 1970 COLONOSCOPY - COLON CA SCREENING 1970 CT COLONOGRAPHY - COLON CA SCREENING 1970 Colorectal Cancer Screening 1970 FIT - COLON CA SCREENING 1970 FLEX SIG - COLON CA SCREENING 1970 LIPID TESTING 1970 HIV SCREENING 1985 HEPATITIS C SCREENING 09/04/1988 DTAP/TDAP/TD VACCINES (1 - Tdap) 1989 HEPATITIS B VACCINE (1 of 3 - 19+ 3-dose series) 1989 SCREENING FOR DIABETES 03/29/2017 PNEUMOCOCCAL VACCINE 50+ (1 of 1 - PCV) 2020 ZOSTER VACCINE (1 of 2) 2020 COVID-19 VACCINE ( - 2023-2 5 season) 2024 DEPRESSION SCREENING 08/24/2024 INFLUENZA VACCINE (Season Ended) 2025 HIB VACCINE Aged Out No longer eligi ble based on patient's age to complete this topic HPV VACCINE Aged Out No longer eligi ble based on patient's age to complete this topic MENINGOCOCCAL (Group B) VACC INE SHARED DECISION-MAKING Aged Out No longer eligibl e based on patient's age to complete this topic MENINGOCOCCAL GROUPS A/C/Y/W VACCINE Aged Out No longer eligible b ased on patient's age to complete this topic Insurance [facility] SELF PAY NO INSURANCE Member Subscriber Plan / Payer (Ef fective for All Dates) Name:María Elena Contreras Member ID:Not on file Relation to Subscriber:Not on file Name:MARÍA ELENA CONTRERAS Subscriber ID:Not on file Address: [address] [place] [address] Payer ID:Not on file Group ID:Not on file Type:Self Pay Address: [place], [place] Care Teams Warehouse Driver Relationship Specialty Start Date End Date Rahat Reagan MD [address] [place] [address] PCP - General Family Medicine 03/29/17
--- OUTSIDE RECORDS SUMMARY | 2025-01-13 00:31 | XMS_ITS | Clinical Summary ---
Author Organization [facility] Address [address] [place] [address] Phone Care Team Providers Care Type Disk Quality Control Supervisor Name Role Phone Rahat Reagan MD Primary Care Provider Allergies Active Allergy Reactions Criticality Noted Date Comments Prochlorperazine Maleate Other (see Comments) 0 09/08/2016 Seizures Medications citalopram (CELEXA) 20 MG Tablet Take 20 mg by mouth daily. Active tadalafil (CIALIS) 10 MG Tablet Take 5 mg by mouth daily. Active lisinopril (PRINIVIL, ZESTRIL) 5 MG Tablet Take 5 mg by mouth daily. Active rOPINIRole (REQUIP) 0.5 MG Tablet Take 0.5 mg by mouth 3 times daily. Active fluticasone furoate (ARNUITY ELLIPTA) 100 MCG/ACT AEROSOL POWDER, BREATH ACTIVATED take by inhalation. 1 Each 0 09/08/2016 Active Azelastine-Flut icasone (DYMISTA) 137-50 MCG/ACT SuspensionIndic ations:Allergic rhinitis due to other allergic trigger,Chronic cough 1 [place] by Nasal route 2 times daily. 1 Bottle 5 10/13/2016 Active fluticasone (FLONASE) 50 MCG/ACT SuspensionIndic ations:Allergic rhinitis due to other allergic trigger,Chronic cough Use in each nostril one spray, once or twice daily. 1 Bottle 5 10/13/2016 Active azelastine (ASTELIN) 0.1 % SolutionIndicat ions:Allergic rhinitis due to other allergic trigger,Chronic cough Use in each nostril one spray, once or twice daily. 1 Bottle 5 10/13/2016 Active Active Problems Problem Noted Date Diagnosed Date MARK (obstructive sleep apnea) 10/13/2016 Allergic rhinitis due to allergen 09/08/2016 Overview (09/08/2016): Dust mite, mold, weed Chronic cough 09/08/2016 Social History Tobacco Use Types Packs/Day Years Used Date Smoking Tobacco: Never Alcohol Use Standard Drinks/Week Comments Not Asked 0 (1 standard drink = 0.6 oz pur e alcohol) Sex and Gender Information Value Date Recorded Sex Assigned at Not on file Legal Sex Male 7:49 PM CDT Gender Identity Not on file Sexual Orientation Not on file Last Filed Vital Signs Vital Sign Reading Time Taken Comments Blood Pressure 110/62 10/13/2016 11:29 AM HR RECRUITER Pulse - - Temperature - - Respiratory Rate - - Oxygen Saturation - - Inhaled Oxygen Concentration - - Weight 84.8 kg (187 lb) 10/13/2016 11:29 AM HR RECRUITER Height 167.6 cm (5' 6 ) 10/13/2016 11:29 AM HR RECRUITER Body Mass Index 30.18 10/13/2016 11:29 AM HR RECRUITER Plan of Treatment Health Maintenance Due Date Last Done Comments Hepatitis C Virus (HCV) Screening 1970 TdaP Immunization 1970 Hepatitis B Immunization (1 of 3 - 19+ 3-dose series) 1989 Colonoscopy 2015 Colorectal Cancer Screening 2015 Cologuard 2020 Immunochemical Fecal Occult Blood 2020 Pneumococcal Immunization (5 0+ years) (1 of 1 - PCV) 2020 Zoster Immunization (1 of 2) 2020 Influenza Immunization (#1) 2024 SARS-COV-2 Immunization ( - 2023-25 season) 2024 Respiratory Syncytial Virus (RSV) Immunization (Adult) (1 - 1-dose 75+ series) 2045 Meningococcal Immunization (ACWY) Aged Out No longer eligible based on patient's age to complete this topic Pneumococcal Immunization Combined Aged Out No longer eligible based on patient's age to complete this topic Rotavirus Immunization Aged Out No lo nger eligible based on patient's age to complete this topic Insurance [facility] Care Teams Type Disk Quality Control Supervisor Relationship Specialty Start Date End Date Rahat Reagan MD [address] [place] [address] PCP - General Family Medicine 09/08/16
[2025-01-13 09:58] VITALS: BP 130/74; PULSE 86; RESP 16; TEMP 36.2; O2SAT 97; BMI 33.7
[2025-01-13] MEDS: LACTATED RINGERS 1,000 ML 150 ML IV CONT (10:09)
--- NOTE | 2025-01-13 10:44 | P.PNAN_ITS ---
Anes - Initial Pre Proc Eval Procedure: Operation Date: 01/13/25 11:00 Proposed Procedures p Colonoscopy - Albert Peña MD Date/Time: 01/13/25 10:44 Surgeon: Albert Peña MD Pre Op Diagnosis: hx of colon polyps Patient Data Age: 54 Gender: M Height: 1.68 m Weight: 95 kg Last Vital Signs Temp 36.2 C L 01/13/25 09:58 Pulse 86 01/13/25 09:58 Resp 16 01/13/25 09:58 BP 130/74 01/13/25 09:58 Pulse Ox 97 01/13/25 09:58 O2 Del Method Room Air 01/13/25 09:58 Allergies Allergy/AdvReac Type Severity Reaction Status Date / Time prochlorperazine Allergy Severe Seizure Verified 01/13/25 09:56 gadobenic acid (From Allergy Other Verified 01/13/25 09:56 contrast - MRI) Home Medications ?Medication ?Instructions ?Recorded ?Confirmed ?Type albuterol sulfate 90 mcg/actuation 1 puff inhalation Q4-6H PRN 05/04/23 01/05/25 Rx aerosol inhaler shortness of breath or wheezing #8.5 grams omeprazole 10 mg capsule,delayed 20 mg PO DAILY 12/18/23 01/13/25 History release losartan 50 mg tablet See Rx Instructions .Route 11/04/24 01/13/25 Rx .COMPLEX #135 tabs phentermine 30 mg capsule 30 mg PO DAILY #30 caps 12/23/24 01/13/25 Rx Patient hx anesthesia problems: none Family hx anesthesia problems: none Results Review: All pre-operative results and documents have been reviewed as part of the pre- operative evaluation. [facility] Past Medical History Medical History Contact dermatitis Low back pain with sciatica HLD (hyperlipidemia) Wellness examination Cough Surgical History Surgical History H/O inguinal hernia repair History of cholecystectomy Social History Social History Smoking status: Never smoker Second hand tobacco smoke exposure: No Alcohol intake: former Substance use: never Substance use type: does not use Do You Feel Safe in your Home?: Yes Lack of Transportation: No Lack of Food: Never True Current Housing: I Have Housing Concerned About Future Housing: No Difficulty Paying Gas/Electric Bills: No Difficulty Paying for Meds: No Currently Unemployed: No Education: Bachelor's Degree Difficulty w/ Childcare or Family Care: No Living arrangements: alone Occupation/Education: occupation Gender identity (if verbalized by the patient): Male Sexual Orientation (if Verbalized by the Patient): Straight or Heterosexual Spiritual care concerns: No Anes - Eval Final PreProcedure Day of Procedure 01/13/25 10:44 Patient weight: obese Heart: regular rate and rhythm Lungs: clear to auscultation Airway: Mallampati scale class III Neurological: alert and oriented Last oral intake: >/= 8 hours ASA classification: III Emergent: no Anesthetic plan: proceed Anesthesia type and monitoring: general GIVS and standard monitoring Results Review: All pre-operative results and documents have been reviewed as part of the pre- operative evaluation. Informed Consent: The patient's anesthetic plan and its attendant risks and benefits were discussed with the patient/family/POA. Questions were solicited and answers provided to the satisfaction of the patient/family/POA.
--- NOTE | 2025-01-13 11:01 | PM.IMHP ---
H&P: HPI History of Present Illness Date/Time: 01/13/25 11:01 Chief Complaint: History of colon polyps Narrative: The patient has a history of colonic polyps, the last colonoscopy was 3 years ago. Review of Systems Review of Systems: All systems reviewed & are unremarkable except as noted in HPI and below PMFSH Past Medical History Medical History Contact dermatitis Low back pain with sciatica HLD (hyperlipidemia) Wellness examination Cough Surgical History Surgical History H/O inguinal hernia repair History of cholecystectomy Social History Social History Smoking status: Never smoker Second hand tobacco smoke exposure: No Alcohol intake: former Substance use: never Substance use type: does not use Do You Feel Safe in your Home?: Yes Lack of Transportation: No Lack of Food: Never True Current Housing: I Have Housing Concerned About Future Housing: No Difficulty Paying Gas/Electric Bills: No Difficulty Paying for Meds: No Currently Unemployed: No Education: Bachelor's Degree Difficulty w/ Childcare or Family Care: No Living arrangements: alone Occupation/Education: occupation Gender identity (if verbalized by the patient): Male Sexual Orientation (if Verbalized by the Patient): Straight or Heterosexual Spiritual care concerns: No Meds Home Medications and Allergies Home Medications ?Medication ?Instructions ?Recorded ?Confirmed ?Type albuterol sulfate 90 mcg/actuation 1 puff inhalation Q4-6H PRN 05/04/23 01/05/25 Rx aerosol inhaler shortness of breath or wheezing #8.5 grams omeprazole 10 mg capsule,delayed 20 mg PO DAILY 12/18/23 01/13/25 History release losartan 50 mg tablet See Rx Instructions .Route 11/04/24 01/13/25 Rx .COMPLEX #135 tabs phentermine 30 mg capsule 30 mg PO DAILY #30 caps 12/23/24 01/13/25 Rx Allergies Allergy/AdvReac Type Severity Reaction Status Date / Time prochlorperazine Allergy Severe Seizure Verified 01/13/25 09:56 gadobenic acid (From Allergy Other Verified 01/13/25 09:56 contrast - MRI) Vital Signs Vital Signs - 24 hr 01/13/25 09:58 Temperature 97.2 F L Pulse Rate 86 Respiratory Rate 16 Blood Pressure 130/74 Pulse Oximetry 97 Oxygen Delivery Room Air Exam Const: General: cooperative and healthy appearing Resp: Effort & Inspection: normal respiratory effort and able to speak in complete sentences Auscultation: clear to auscultation bilaterally Cardio: Rate: regular rate Rhythm: regular rhythm GI: Inspection: normal to inspection GI Palp: No No hepatosplenomegaly present Auscultation: normal bowel sounds Rectal Exam: deferred Skin: General skin exam: normal color Psych: Appearance: grossly normal Mental Status: mental status grossly normal Assessment and Plan Assessment and plan (1) Family history of colonic polyps: Code(s): Z83.71 - Family history of colonic polyps Status: Acute Assessment and Plan: The patient is deemed a good candidate for the procedure. Consent signed. Will proceed.
[2025-01-13 11:36] VITALS: BP 102/70; PULSE 88; RESP 16; O2SAT 96
[2025-01-13 11:46] VITALS: BP 102/63; PULSE 77; RESP 18; O2SAT 96
--- NOTE | 2025-01-13 11:51 | SUR.OPER ---
Dr. Peña is aware that 2 of 6 cecal polyps were not recovered. (1 polyp not snared, 1 polyp not retrieved after snared)
[2025-01-13 11:56] VITALS: BP 123/79; PULSE 70; RESP 18; O2SAT 100
== END 2025-01-13 12:02 | disposition home or self-care (01) ==
PROVIDERS: PCP Family Medicine; Referring Provider Internal Medicine Gastroenterology; Visit Provider Internal Medicine Gastroenterology
PROC: 0DJD8ZZ Inspection of Lower Intestinal Tract, Via Natural or Artificial Opening Endoscopic (ICD-10-PCS; CPT 45378; principal; 2025-01-13 11:00)
DX: Z12.11 Encounter for screening for malignant neoplasm of colon (principal); K63.5 Polyp of colon; E78.5 Hyperlipidemia, unspecified; E66.9 Obesity, unspecified; Z68.33 Body mass index [BMI] 33.0-33.9, adult; Z79.51 Long term (current) use of inhaled steroids; Z98.890 Other specified postprocedural states; Z90.49 Acquired absence of other specified parts of digestive tract
CPT/HCPCS: 45385; 88305; J2704; J7120